=== PATIENT | male | born 1955 | race Caucasian/White ===

== ENCOUNTER 2019-06-28 14:31 | Inpatient (IN) ==
[2019-06-28 16:06] LABS: BILIRUBIN URINE NEGATIVE (NEGATIVE); BLOOD URINE 1+ (NEGATIVE); CLARITY VERY CLOUDY (CLEAR); COLOR YELLOW; GLUCOSE URINE NEGATIVE (NEGATIVE); KETONE URINE TRACE mg/dL (NEGATIVE); LEUKOCYTES URINE 2+ (NEGATIVE); NITRITE URINE POSITIVE (NEGATIVE); PH URINE 6.5; PROTEIN URINE 1+(30 mg/dL) mg/dL (NEGATIVE); SP GRAVITY URINE 1.015; UROBILINOGEN URINE NORMAL
[2019-06-28 16:10] LABS: URINE SOURCE CLEAN CATCH
--- NOTE | 2019-06-28 16:11 | Diag Imaging Result Doc PS360 ---
EXAM: CHEST-PORTABLE HISTORY: syncope TECHNIQUE: Single view COMPARISON: None. FINDINGS: The lungs are well expanded. The heart is not enlarged. The vessels are not distended. There are no infiltrates. No effusion identified. IMPRESSION: Negative exam. Electronically signed by Miguel Llanes 06/28/2019 4:08 PM
[2019-06-28 16:33] LABS: URINE BACTERIA 3+ /HFP; URINE CAST NONE SEEN /LPF; URINE CRYSTAL NONE SEEN /HPF; URINE EPITHELIAL CELLS <10 /HPF (<10); URINE SMALL ROUND CELLS TRANSITIONAL PRESENT; URINE WBC TNTC /HPF (<10); URINE YEAST NONE SEEN /HPF
[2019-06-28 16:40] LABS: AGAP 9; ALBUMIN 4.2 g/dL (3.5-5.0); ALKALINE PHOSPHATASE 162 U/L (32-122); BUN 20 mg/dL (8-22); CALCIUM 9.5 mg/dL (8.8-10.2); CHLORIDE 103 mmol/L (98-107); COSMO 275; CREATININE 0.7 mg/dL (0.7-1.2); ESTIMATED GFR > 60; GLUCOSE 104 mg/dL (70-104); GOT 13 U/L (10-34); GPT 14 U/L (10-44); POTASSIUM 4.5 mmol/L (3.5-5.1); SODIUM 136 mmol/L (136-145); TCO2 24 mmol/L (25-35)
[2019-06-28] MEDS ORDERED: ROCEPHIN 1 GM in NS 50 ML IV ONE (16:45)
--- NOTE | 2019-06-28 16:47 | Diag Imaging Result Doc PS360 ---
EXAM: CT HEAD W/O CONTRAST HISTORY: syncope TECHNIQUE: CT head without contrast COMPARISON: 05/25/2018 FINDINGS: No parenchymal hemorrhage. No epidural or subdural hematoma. No subarachnoid hemorrhage. No mass identified on this noncontrasted exam. No hydrocephalus. No sinus opacification. IMPRESSION: No hemorrhage. Negative brain CT without contrast. This exam was performed using automated exposure control, adjustment of mA or kV according to patient size, and/or use of iterative reconstruction technique. Electronically signed by Miguel Llanes 06/28/2019 4:45 PM
[2019-06-28] MEDS ORDERED: NS 1,000 ML IV ONE (17:06)
[2019-06-28 17:30] LABS: BASO# 0.01 X1000 (0.0-0.2); BASO% 0.1 % (0.0-0.8); EOS# 0.06 X1000 (0.0-0.7); EOS% 0.8 % (0.0-10.0); HEMATOCRIT 40.4 % (42.0-52.0); HEMOGLOBIN 13.1 g/dL (14.0-18.0); IMM GRAN# 0.02 X1000 (0.0-0.04); IMM GRAN% 0.3 % (0.0-0.5); LYMPH# 1.18 X1000 (1.2-3.4); LYMPH% 15.5 % (20.5-51.1); MCH 29.5 PG (27-31); MCHC 32.4 g/dL (33-37); MONO# 0.61 X1000 (0.11-0.59); MPV 10.3 FL (7.4-10.4); NEUT# 5.71 X1000 (1.4-6.5); NEUT% 75.3 % (42.2-75.2); PLT 252 X1000 (130-400); RBC 4.44 XMIL (4.7-6.1); RDW 14.3 % (11.5-14.5); WBC 7.59 X1000 (4.8-10.8)
--- NOTE | 2019-06-28 17:31 | EKG Report ---
Test Performed on : 06/28/2019 3:34:44 PM Test Reason : syncope Blood Pressure : / mmHG Vent. Rate : 087 BPM Atrial Rate : 087 BPM P-R Int : 182 ms QRS Dur : 106 ms QT Int : 374 ms P-R-T Axes : -08 031 033 degrees QTc Int : 450 ms Normal sinus rhythm. Normal ECG When compared with ECG of 17-JUL-2017 14:02, No significant change was found Unconfirmed Result
--- NOTE | 2019-06-28 17:45 | PROVIDER DOCUMENTATION ---
This chart was entered by Javier Lopez Scribe, acting as scribe for Adia Centeno MD. HPI-Syncope/Dizziness - General Chief Complaint: Syncope Stated Complaint: SYNCOPE Time Seen by Provider: 06/28/19 15:04 Source: patient, family, EMS (first response) Allergies/Adverse Reactions: Patient Allergies Allergy/AdvReac Type Severity Reaction Status Date / Time No Known Allergies Allergy Verified 07/17/17 13:42 Home Medications: Home Medication List Medication Instructions Recorded Confirmed Last Taken Type Cholecalciferol (Vitamin D3) 25 mcg PO DAILY 06/28/19 06/28/19 Unknown History [Vitamin D3] Ciprofloxacin HCl [Cipro] 1 tab PO BID 06/28/19 06/28/19 Unknown History Cyanocobalamin/FA/Pyridoxine 1 tab PO DAILY 06/28/19 06/28/19 Unknown History [Foltx] Raw Co Q1 200 mg PO DAILY 06/28/19 06/28/19 Unknown History Thiamine Mononitrate (Vit B1) 1 tab PO DAILY 06/28/19 06/28/19 Unknown History [Vitamin B-1] - History of Present Illness-Syncope/Dizzy Nature of Presenting Problem: 63 yom presents to the ed v/a ems for syncope episode. EMS stated pt having " absent seizure." states " i got him up to go to the bathroom , got pt on the toilet and pt was urinating when pt fell of the toilet." states pt " was jerking pts eyes were rolled back and face was drawn." states episode lasts min to min in half. stated states " Friday pt was fixing breakfast and went to sit on walker fell off walker and broke it, stated no one was at home." pt "is wetting the bed also frequently." pt stated " dizzy/lightheaded, like im in a row boat in water." states " when this happens pts BP drops ,pt said when ems checked it maybe 70/40?" stated going to a [facility] doctor in [facility] and severe apnea , and has complained to doctor about symptoms." states trying to get in with Dr. [place] in [place] have the referral but waiting to be called back to set up a date." onset symptoms "for year in a half but more and more now." pt has problems with clear speech. Prior Episodes: reports: recent history (year and half ago started stated by ) Onset/Duration: reports: just prior to arrival Timing: reports: still present, intermittent Position/Activity at time of episode: reports: sitting (using bathroom) Symptoms prior to episode: reports: lightheaded. denies: nausea/vomiting, chest pain, abdominal pain, back pain, injury Duration of preceding symptoms? (mins): 1 Context: reports: seizure activity observed Loss of Consciousness: brief (seconds) Location of injury. (If syncope resulted in an injury.): reports: none Current Symptoms: reports: lightheaded, dizzy. denies: fever, chills, chest pain, short of breath, abdominal pain, nausea, vomiting, blurred vision Recently Seen Here or By Another Healthcare Provider: No - Dizziness Severity in ED: reports: mild Dizziness Related Current/Associated Symptoms: reports: lightheaded, dizzy, sense of spinning, syncope. denies: nausea/vomiting, headache, blurred vision, sense of falling, unable to sit up Any recent trauma/injury?: reports: none Modifying Factors: improves with: nothing Patient usually:: reports: uses a walker Review of Systems - Adult - REVIEW OF SYSTEMS - ADULT Constitutional: denies: chills, fever Eyes: denies: decreased vision, blurred vision, double vision Ears, Nose, Mouth & Throat: reports: no symptoms reported Cardiovascular: denies: chest pain, heart murmur, palpitations Respiratory: denies: shortness of breath, wheezing Gastrointestinal: denies: abdominal pain, constipation, diarrhea, nausea, vomiting Genitourinary: reports: no symptoms reported Musculoskeletal: denies: back pain, neck pain Integumentary: reports: no symptoms reported Neurological: reports: see HPI, dizziness/vertigo, syncope. denies: headache/migraines, numbness Psychiatric: reports: no symptoms reported Endocrine: reports: no symptoms reported Hematologic/Lymphatic: reports: no symptoms reported Allergic/Immunologic: reports: no symptoms reported All Other Systems: Reviewed and Negative Past History - Adult - PAST MEDICAL HISTORY-ADULT Review of Records: reports: Old Records Reviewed, Nursing Assessment Review, Medications Reviewed, Social history reviewed & non-contributory. Major Childhood Illnesses: reports: denies history Cardiovascular: reports: HTN Respiratory: reports: sleep apnea Gastrointestinal: reports: denies history Obstetrical/Gynecological: reports: denies history Genitourinary: reports: kidney stones Musculoskeletal: reports: other (BLE chronic neuropathy) Neurological: reports: Seizures/Epilepsy (per pt) Endocrine/Immune: reports: denies history Other Conditions: reports: denies history - PRIOR SURGERIES/PROCEDURES Surgical/Procedure History: reports: none - IMMUNIZATION STATUS Childhood Immunizations: See Nurse Assessment Flu Vaccine: See Nurse Assessment - FAMILY HISTORY Family History: reviewed, not pertinent - SOCIAL HISTORY Smoking: quit greater than 1 year, cigarettes Substance Use: alcohol Alcohol Use Frequency: rarely (none since january) Living Situation: family Physical Exam-General - PHYSICAL EXAM-ADULT Initial Vital Signs Reviewed: Yes - CONSTITUTIONAL General Appearance: appears well, alert, no apparent distress. negative: lethargic, slow to respond - EYES Eyes: PERRL/EOMI - HEAD, EARS, NOSE, MOUTH & THROAT HENMT: moist mucous membranes, normal ENT inspection, TMs normal - NECK Neck: non-tender, full range of motion, supple, normal inspection - RESPIRATORY Respiratory: chest non-tender, lungs clear, normal breath sounds, no pleuratic chest pain, no respiratory distress, no accessory muscle use - CARDIOVASCULAR Cardiovascular: normal peripheral pulses, regular rate, rhythm, no edema, no gallop, no JVD, no murmur - GASTROINTESTINAL (ABDOMEN) Abdominal Exam: normal bowel sounds, non tender, soft, no organomegaly, no pulsatile mass. negative: distended, guarding, rigid, rebound, tenderness - GENITOURINARY Male Genitalia: deferred Rectal Exam: deferred Hemoccult Exam: deferred - LYMPHATIC Lymphatic: no adenopathy - MUSCULOSKELETAL Back Exam: normal inspection, no CVA tenderness, no vertebral tenderness Extremity: normal range of motion, non-tender, normal gait - SKIN Integumentary: normal color, normal turgor, warm/dry - NEUROLOGIC Neurologic: grossly normal, no motor/sensory deficits - PSYCHIATRIC Psych/Mental Status: normal mood/affect, normal thought content, normal thought process, oriented x 3 Progress - PLAN OF CARE/RESULTS Progress/Plan/Lab Results: Vital Signs - 8 hr 06/28/19 14:31 06/28/19 15:44 06/28/19 16:50 Temperature 97.9 F Pulse Rate 88 89 Pulse Rate [Sitting] 96 H Pulse Rate [Standing] 99 H Pulse Rate [Supine] 88 Respiratory Rate 18 19 Blood Pressure 168/109 148/80 Blood Pressure [Sitting] 121/87 Blood Pressure [Standing] 77/49 Blood Pressure [Supine] 152/100 O2 Sat by Pulse Oximetry 99 100 Laboratory Results - last 24 hr 06/28/19 06/28/19 06/28/19 14:51 15:40 15:40 WBC RBC Hgb Hct MCV MCH MCHC RDW Std Deviation Plt Count MPV Immature Gran % (Auto) Neut % (Auto) Lymph % (Auto) [place] % (Auto) Eos % (Auto) Baso % (Auto) Immature Gran # (Auto) Neut # (Auto) Lymph # (Auto) [place] # (Auto) Eos # (Auto) Baso # (Auto) Sodium Potassium Chloride Carbon Dioxide Anion Gap BUN Creatinine Estimated GFR/1.73 m2 BUN/Creatinine Ratio Glucose POC Glucose 105 H Calculated Osmolality Calcium Total Bilirubin AST ALT Alkaline Phosphatase Creatine Kinase 41 Troponin T < 0.010 Total Protein Albumin Globulin Albumin/Globulin Ratio TSH Urine Source Urine Color Urine Clarity Urine pH Ur Specific Withams Urine Protein Urine Ketones Urine Blood Urine Nitrite Urine Bilirubin Urine Urobilinogen Urine Microscopic RBC Urine WBC Urine Microscopic WBC Ur Epithelial Cells Urine Crystals Small Round Cells Urine Bacteria Urine Casts Urine Yeast Urine Glucose 06/28/19 06/28/19 06/28/19 15:40 15:40 15:40 WBC 7.59 RBC 4.44 L Hgb 13.1 L Hct 40.4 L MCV 91.0 MCH 29.5 MCHC 32.4 L RDW Std Deviation 14.3 Plt Count 252 MPV 10.3 Immature Gran % (Auto) 0.3 Neut % (Auto) 75.3 H Lymph % (Auto) 15.5 L [place] % (Auto) 8.0 Eos % (Auto) 0.8 Baso % (Auto) 0.1 Immature Gran # (Auto) 0.02 Neut # (Auto) 5.71 Lymph # (Auto) 1.18 L [place] # (Auto) 0.61 H Eos # (Auto) 0.06 Baso # (Auto) 0.01 Sodium 136 Potassium 4.5 Chloride 103 Carbon Dioxide 24 L Anion Gap 9 BUN 20 Creatinine 0.7 Estimated GFR/1.73 m2 > 60 BUN/Creatinine Ratio 29 Glucose 104 POC Glucose Calculated Osmolality 275 Calcium 9.5 Total Bilirubin 0.30 AST 13 ALT 14 Alkaline Phosphatase 162 H Creatine Kinase Troponin T Total Protein 7.0 Albumin 4.2 Globulin 3.0 Albumin/Globulin Ratio 2.0 TSH 2.41 Urine Source Urine Color Urine Clarity Urine pH Ur Specific Withams Urine Protein Urine Ketones Urine Blood Urine Nitrite Urine Bilirubin Urine Urobilinogen Urine Microscopic RBC Urine WBC Urine Microscopic WBC Ur Epithelial Cells Urine Crystals Small Round Cells Urine Bacteria Urine Casts Urine Yeast Urine Glucose 06/28/19 15:40 WBC RBC Hgb Hct MCV MCH MCHC RDW Std Deviation Plt Count MPV Immature Gran % (Auto) Neut % (Auto) Lymph % (Auto) [place] % (Auto) Eos % (Auto) Baso % (Auto) Immature Gran # (Auto) Neut # (Auto) Lymph # (Auto) [place] # (Auto) Eos # (Auto) Baso # (Auto) Sodium Potassium Chloride Carbon Dioxide Anion Gap BUN Creatinine Estimated GFR/1.73 m2 BUN/Creatinine Ratio Glucose POC Glucose Calculated Osmolality Calcium Total Bilirubin AST ALT Alkaline Phosphatase Creatine Kinase Troponin T Total Protein Albumin Globulin Albumin/Globulin Ratio TSH Urine Source CLEAN CATCH Urine Color YELLOW Urine Clarity VERY CLOUDY A Urine pH 6.5 Ur Specific Withams 1.015 Urine Protein 1+(30 mg/dL) A Urine Ketones TRACE Urine Blood 1+ A Urine Nitrite POSITIVE A Urine Bilirubin NEGATIVE Urine Urobilinogen NORMAL Urine Microscopic RBC 10-20 A Urine WBC 2+ A Urine Microscopic WBC TNTC A Ur Epithelial Cells <10 Urine Crystals NONE SEEN Small Round Cells TRANSITIONAL PRESENT Urine Bacteria 3+ Urine Casts NONE SEEN Urine Yeast NONE SEEN Urine Glucose NEGATIVE Orders Category Date Time Status Admit - [facility] Routine AdmDCTranf 06/28/19 17:41 Active Activity - Bed Rest with BRP ORDERED Care 06/28/19 17:41 Active ED: Orthostatic Vital Signs (E DIRECTED Care 06/28/19 15:15 Active Z-Document. for Tele Applied ORDERED Care 06/28/19 17:42 Active Heart Healthy Diet Diet 06/28/19 17:43 Active CHEST-PORTABLE [RAD] Stat Exams 06/28/19 15:[address] HEAD W/O CONTRAST [CT] Stat Exams 06/28/19 15:15 Completed BLOOD CULTURE [BLDCUL] Stat Lab 06/28/19 17:18 Ordered CBC WITH ELECTRONIC DIFF [HEME] Stat Lab 06/28/19 15:40 Completed CK PROFILE [SP CHEM] Stat Lab 06/28/19 15:40 Completed COMPREHENSIVE METABOLIC PANEL [CHEM] Stat Lab 06/28/19 15:40 Completed LACTATE, PLASMA [CHEM] Stat Lab 06/28/19 17:15 Received TROPONIN T Stat Lab 06/28/19 15:40 Completed TSH Stat Lab 06/28/19 15:40 Completed UA NIMS W/REFLEX CULT PL [URINALYSIS] Stat Lab 06/28/19 15:40 Completed URINE CULTURE [RM] Routine Lab 06/28/19 16:33 Ordered 0.9% Sodium Chloride Inj [Ns] 1,000 ml Med 06/28/19 17:06 Active IV 999 mls/hr CefTRIAXONE [Rocephin] 1 gm Med 06/28/19 16:45 Discontinued 0.9% Sodium Chloride Inj [Ns] 50 ml IV NOW Telemetry [OM.EQ] Routine Oth 06/28/19 17:41 Active EKG [EKG] Stat Ther 06/28/19 15:15 Draft Transfer/Admit Order [TRANSFER] Routine Transfer 06/28/19 17:43 Ordered Result Diagrams: 06/28/19 15:40 06/28/19 15:40 - EKG 1 Time of EKG reading by physician:: 15:34 EKG Read and Signed by:: Adia Centeno EKG Interpretation (*Must complete 3 of following elements*): Normal Rate: 84 Rhythm: NSR [place]: normal QRS: normal [place] Interval: normal ST Wave: normal - XRAY 1 XRAY Study: Chest Impression: See EMR Report (EXAM: CHEST-PORTABLE HISTORY: syncope TECHNIQUE: Single view COMPARISON: None. FINDINGS: The lungs are well expanded. The heart is not enlarged. The vessels are not distended. There are no infiltrates. No effusion identified. IMPRESSION: Negative exam. Electronically signed by Miguel Llanes 06/28/2019 4:08 PM 06/28/19 [id number] Interpreting Physician: Miguel Llanes MD Dictated Date/Time: 06/28/19 1608 cc: Adia Centeno MD; None,PCP) - CT/MRI 1 CT Study: Head Impression: See EMR Report (EXAM: CT HEAD W/O CONTRAST HISTORY: syncope TECHNIQUE: CT head without contrast COMPARISON: 05/25/2018 FINDINGS: No parenchymal hemorrhage. No epidural or subdural hematoma. No subarachnoid hemo rrhage. No mass identified on this noncontrasted exam. No hydrocephalus. No sinus opacification. IMPRESSION: No hemorrhage. Negative brain CT without contrast. This exam was performed using automated exposure control, adjustment of mA or kV according to patient size, and/or use of iterative reconstruction technique. Electronically signed by Miguel Llanes 06/28/2019 4:45 PM 06/28/19 1646 Interpreting Physician: Miguel Llanes MD Dictated Date/Time: 06/28/19 7719 cc: Adia Centeno MD; None,PCP) - CONSULTS/PCP/HOSPITALIST Notification #1 *Consult/PCP/Hospitalist*: d/w Dr Robins, Time Discussed: 17:37 Consult Disposition: Admit Departure - Departure Date of Disposition Decision: 06/28/19 Time of Disposition Decision: 17:43 DIAGNOSIS: Orthostatic hypotension, Syncope and collapse, Seizure Disposition: ADMITTED INPATIENT 09 Certified Medical Emergency: Emergent Condition: Stable Referrals and Follow-Ups: None,PCP [Primary Care Provider] - - Critical Care Note This patient required my direct & personal management of CC.: No Attestation - Physician/ TIFFANY Attestation Patient care was provided by Advanced Practice Provider:: No The physician spent face to face time with patient:: Yes Advanced Practice Provider documentation review:: Supervising physician onsite and consulted in the evaluation and care of this patient. The physician did have a face to face encounter with the patient. This chart was documented by the indicated scribe, (Javier Lopez, Darian) and accurately reflects the services I performed and decisions made by me, Adia Centeno MD, as attested by the provider's signature.
[2019-06-28 18:20] LABS: INR 1.06; PROTIME 14.4 Seconds (11.0-16.0)
[2019-06-28 18:21] LABS: PTT 30.6 Seconds (22.3-41.8)
[2019-06-28] MEDS: NS 1,000 ML IV SCH (22:58)
[2019-06-28] MEDS ORDERED: FLU VACCINE IM ONE (23:04)
[2019-06-29 06:32] LABS: BASO# 0.02 X1000 (0.0-0.2); BASO% 0.3 % (0.0-0.8); EOS# 0.11 X1000 (0.0-0.7); EOS% 1.6 % (0.0-10.0); HEMATOCRIT 37.3 % (42.0-52.0); HEMOGLOBIN 11.8 g/dL (14.0-18.0); IMM GRAN# 0.02 X1000 (0.0-0.04); IMM GRAN% 0.3 % (0.0-0.5); LYMPH# 1.56 X1000 (1.2-3.4); LYMPH% 22.5 % (20.5-51.1); MCH 28.6 PG (27-31); MCHC 31.6 g/dL (33-37); MCV 90.5 FL (81-99); MONO# 0.62 X1000 (0.11-0.59); MONO% 8.9 % (1.7-9.3); MPV 10.2 FL (7.4-10.4); NEUT% 66.4 % (42.2-75.2); PLT 232 X1000 (130-400); RBC 4.12 XMIL (4.7-6.1); WBC 6.93 X1000 (4.8-10.8)
[2019-06-29] MEDS: NS 1,000 ML IV SCH ×2 (06:41→15:12)
[2019-06-29 06:46] LABS: AGAP 10; ALBUMIN 3.5 g/dL (3.5-5.0); ALKALINE PHOSPHATASE 131 U/L (32-122); BUN 14 mg/dL (8-22); CALCIUM 8.7 mg/dL (8.8-10.2); CHLORIDE 109 mmol/L (98-107); COSMO 276; CREATININE 0.7 mg/dL (0.7-1.2); ESTIMATED GFR > 60; GLUCOSE 96 mg/dL (70-104); GOT 14 U/L (10-34); GPT 14 U/L (10-44); MAGNESIUM 1.7 mg/dL (1.5-2.7); PHOSPHORUS 3.4 mg/dL (2.7-4.5); POTASSIUM 3.9 mmol/L (3.5-5.1); SODIUM 138 mmol/L (136-145); TCO2 20 mmol/L (25-35); TOTAL PROTEIN 6.4 g/dL (6.3-8.3)
--- NOTE | 2019-06-29 11:22 | Vascular Study Report ---
EXAM: Carotid Ultrasound - 06/29/2019 HISTORY: syncope TECHNIQUE: Carotid flow studies COMPARISON: None. FINDINGS: There is mild atherosclerotic plaquing at the right carotid bulb/internal carotid origin. Maximum systolic velocity at the right internal carotid is 71 cm/s, and maximum diastolic velocity is 25 cm/s. The right internal to common carotid systolic velocity ratio is 1.16. The flow velocities and ratio are consistent with 0-39% stenosis at the right internal carotid. The right vertebral demonstrates antegrade flow. There is possibly mild smooth atherosclerotic plaquing at the left carotid bulb/internal carotid origin. Maximal systolic velocity at the left internal carotid is 65 cm/s, and maximum diastolic velocity is 16 cm/s. The left internal to common carotid systolic velocity ratio is 0.74. The flow velocities and ratio are consistent with 0-39% stenosis at the left internal carotid. The left vertebral demonstrates antegrade flow. IMPRESSION: 0-39% stenosis at right internal carotid. 0-39% stenosis at left internal carotid. Electronically signed by Natanael Becker 06/29/2019 11:20 AM
--- NOTE | 2019-06-29 12:33 | HISTORY AND PHYSICAL ---
PRIMARY CARE PROVIDER: Dr. Christopher Amaro. NEUROLOGIST: Dr. Grady. HISTORY OF PRESENT ILLNESS: Mr. Solorzano is a 63-year-old gentleman who carries a past medical history of disequilibrium, dysarthria, peripheral neuropathy, anemia, anxiety, chronic neck pain, erectile dysfunction, gout, hypertension, rheumatoid arthritis, sleep apnea, who wears CPAP at night. Reported he keeps having falls at home. Per his report, his thought maybe he was having seizures secondary to their youngest son having a history of seizures. He reports disequilibrium and slurred speech and dysarthria has been ongoing and continues to worsen for the past 2-1/2 years. Per ED report, the got him up to go the restroom, and while he was urinating, he fell off the toilet and was jerking, and his eyes were rolled back and his face appeared to be drawn. EMS reported hypotension 70/40s. I believe he follows a Neurology doctor now in [place], and they are currently writing a referral to Dr. Luis in [place]. Workup in the ED with a head CT showed no hemorrhage, negative brain exam. Carotid Doppler showed 0% to 39% stenosis on the right and left internal carotid. Currently pending echocardiogram. He was also found to have a urinary tract infection and was orthostatic. Will continue treatment with further evaluation. REVIEW OF SYSTEMS: A 12-point review of systems was complete and negative, except for those mentioned in the HPI. PAST MEDICAL HISTORY: 1. Disequilibrium. 2. Dysarthria. 3. Peripheral neuropathy. 4. Anemia. 5. Anxiety. 6. Chronic neck pain. 7. History of falling. 8. Sleep apnea with CPAP machine at night. 9. Depression. 10. Erectile dysfunction. 11. Gout. 12. Hypertension. 13. Rheumatoid arthritis. SOCIAL HISTORY: He is . He does have grown children. 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 Before that, he was in the [employer]. No alcohol, tobacco, or illicit drug use. FAMILY HISTORY: Unknown. HOME MEDICATIONS: Folic acid and B12. PAST SURGICAL HISTORY: Bladder surgery. PHYSICAL EXAMINATION: VITAL SIGNS: Temperature is 97.2 degrees, heart rate 88, respirations 22, blood pressure 173/92, O2 is 100% on room air. GENERAL: Mr. Solorzano is a 63-year-old male who appears older than his stated age, lying in the bed in no acute distress. HEENT: Atraumatic, normocephalic. PERRL. NECK: Supple. Trachea midline. CARDIOVASCULAR: S1, S2 appreciated. No murmurs, gallops, rubs noted. RESPIRATORY: Lung sounds are clear bilaterally. GASTROINTESTINAL: Soft, nontender, nondistended. Positive bowel sounds x4 quadrants. LOWER EXTREMITIES: No signs of clubbing or cyanosis. NEUROLOGIC: The patient is awake, alert, oriented. Follows commands. Moves all extremities. He does have dysarthria, which has been ongoing for him. No other deficits noted. Did not assess his gait. LABORATORY DATA: White count 7, hemoglobin and hematocrit 13 and 40, platelet count is 252,000. Sodium 136, potassium 4.5, BUN 20, creatinine 0.7, blood glucose is 104. Urinalysis showed 3+ bacteria, too numerous to count WBCs, positive for nitrates. ASSESSMENT AND PLAN: 1. Orthostatic hypotension versus seizure. The patient has known disequilibrium as well as dysarthria. Workup with a head CT did not show anything acute. He has been followed by Dr. Grady, as well as neurologist in [place], and waiting for set up with Dr. Luis in [place]. These symptoms have been ongoing for 2-1/2 years and continue to worsen. He has had no more seizure-like activity since admission. Will continue to monitor orthostatics, and continue with intravenous fluids. 2. Urinary tract infection. This could have exacerbated some of his symptoms. We will continue intravenous antibiotics, and await urine culture. 3. Known disequilibrium. He has followed several neurologists. 4. Dysarthria, ongoing for 2-1/2 years. 5. Peripheral neuropathy. 6. Anemia. 7. Anxiety. 8. Chronic knee pain. 9. Reported multiple falls at home. 10. Sleep apnea, on continuous positive airway pressure at night. Further recommendation to follow physician evaluation, laboratory and diagnostic data. Dictated by GREY Nieves for Christopher Amaro MD cc: Christopher Amaro MD
[2019-06-29] MEDS: ROCEPHIN 1 GM in NS 50 ML IV SCH (17:34)
--- NOTE | 2019-06-29 18:08 | ECHO REPORT ---
ORDER DATE: 06/29/2019 MEASUREMENTS: 1. Septal thickness 1.1. 2. Left ventricular internal diameter in diastole 5.1. 3. Posterior wall thickness 1.1. 4. Left ventricular internal diameter in systole 3.3. 5. Aortic root 4.00. 6. Left atrium 3.2. SUMMARY: 1. Adequate quality study. 2. Aortic valve is trileaflet and opens normally on 2-dimensional images. Peak gradient across the aortic valve is less than 10 mmHg. There is trace aortic regurgitation. Mitral, tricuspid, and pulmonic valves are without evidence of structural abnormality. The aortic root is mildly enlarged. 3. Normal left ventricular dimensions demonstrated. Estimated left ventricular ejection fraction appears to be at least 65%. No regional wall motion abnormalities are evident. Left atrium, right atrium, and right ventricle are normal in size with grossly preserved right ventricular systolic function. 4. No pericardial effusion. 5. Appearance of inferior vena cava suggests normal central venous pressure. CONCLUSIONS: 1. No significant valvular abnormality demonstrated. 2. Mild aortic root enlargement. 3. Normal left ventricular systolic function without regional wall motion abnormality evident. cc: Shahid Ribeiro MD
--- NOTE | 2019-06-29 20:08 | HISTORY AND PHYSICAL ---
ADDENDUM: The patient presented to the hospital noting that he had some syncopal episodes. He felt odd. His blood pressures are noted to go from 170s down to 80s and 90s systolic back to 120s and 130s. We are going to admit him to the hospital. We will follow his blood pressures. Patient does appear to have a dysautonomic response. Unclear if he has Parkinson's. He is currently seeing Neurology. cc: Christopher Amaro MD
[2019-06-30] MEDS: NS 1,000 ML IV SCH ×4 (03:10→20:54)
[2019-06-30] MEDS: FOLIC ACID PO SCH (09:21)
[2019-06-30] MEDS: VITAMIN B-12 PO SCH (09:21)
--- NOTE | 2019-06-30 13:07 | DISCHARGE SUMMARY ---
ADMISSION DATE: 06/28/2019 DISCHARGE DATE: 06/30/2019 CONSULTATIONS: None. PERTINENT PROCEDURES: 1. Head CT, no hemorrhage. Negative brain CT without contrast. 2. Carotid Doppler 0-39% stenosis on the right internal carotid and left internal carotid. 3. Echocardiogram: Shows an EF of 65% with no regional wall motion abnormalities. DISCHARGE DIAGNOSES: 1. Orthostatic hypertension versus seizure. The patient has known disequilibrium as well as dysarthria. A workup with a head CT did not show anything acute. He has been followed by Dr. Grady in [place], as well as a neurologist in [place] and is currently switching neurologist over to Dr. Luis in [place]. His symptoms have been ongoing for the past 2- 1/2 years and continued to worsen. He has had no more seizure-like activity since admission. His orthostatics were monitored. He was continued on IV fluids. 2. Urinary tract infections, believed exacerbated some of his symptoms. He was initiated on IV antibiotics. Urine culture grew out mixed cisco. He will not be discharged on any home antibiotics. 3. Known disequilibrium. The patient has been followed by several neurologists. We recommend he continue to stick with a neurologist with his regular followups. 4. Dysarthria again ongoing for 2-1/2 years. 5. Peripheral neuropathy. 6. Anemia. 7. Anxiety. 8. Chronic knee pain. 9. Reported multiple falls at home. 10. Sleep apnea on CPAP at night. HOSPITAL COURSE: Briefly, Mr. Solorzano is a 63-year-old gentleman who carries a past medical history of disequilibrium, dysarthria, peripheral neuropathy, anemia, anxiety, chronic pain, erectile dysfunction, gout, hypertension, rheumatoid arthritis, sleep apnea, who wears CPAP at night. He reported having multiple falls at home per his report, his thought he may be having seizures secondary to the youngest son having a history of seizures. He reports disequilibrium and dysarthria ongoing but has continued to worsen over the past 2-1/2 years. Per ED report, the had gotten him up to go the restroom. While he was urinating, he fell off the toilet and was jerking with his eyes rolling back in his head and his face appeared to be drawn. EMS reported hypotension [address] in the ED did not show any acute changes. Carotid Dopplers did not show any stenosis. His echocardiogram is normal. He was initially found to have a probable urinary tract infection for which he was started on antibiotics. It grew out mixed cisco. He has not had any seizures since admission. We have encouraged him to continue to follow up with his neurologist and to stick with one neurologist. VITAL SIGNS: At time of discharge, temperature is 98.6 degrees, heart rate 97, respirations 16, blood pressure 161/93, O2 is 100% on room air. DISCHARGE DIET: Healthy heart. DISCHARGE MEDICATIONS: 1. Folic acid 1 mg p.o. daily. 2. Vitamin B12 25,000 mcg p.o. daily. FOLLOWUP: Mr. Solorzano is being discharged back home with family. He is to continue to follow up with his neurologist. He can return to the ED or call 911 for any worsening of symptoms. Dictated by GREY Nieves for Christopher Amaro MD cc: Christopher Amaro MD
[2019-06-30] MEDS: ROCEPHIN 1 GM in NS 50 ML IV SCH (17:42)
--- NOTE | 2019-06-30 22:49 | PROGRESS NOTE ---
DATE: 06/30/2019 SUBJECTIVE: The patient himself notes that he is feeling back to his baseline. He is ready to go home. Denies any chest pain or palpitations. PHYSICAL EXAM: VITAL SIGNS: Temperature 97.6, pulse 97, respiratory rate 18, BP 161/93. General: Patient is awake, alert. He is in no current respiratory distress. HEENT: Normocephalic. Neck: Supple. Cardiovascular: Regular rate. Chest: Clear. Abdomen: Soft. Extremities: He is noted to move all extremities. Neurologic: He does have dysarthric speech, but this appears to be his baseline. Skin: Warm, dry, no rash. ASSESSMENT: 1. Orthostatic hypotension. 2. Urinary tract infection, presumably. 3. Disequilibrium. 4. Dysarthric speech. 5. Peripheral neuropathy. 6. Anemia. 7. Anxiety. 8. Chronic knee pain. PLAN: We had actually planned on discharging Mr. Solorzano home because I do feel as though he is back to his baseline, although, he is very weak. His blood pressures have been stable. However, his came to the office initially to ask that he be transferred to [facility], although, she is no accepting doctor in mind. She notes that he has been seeing Neurology in [place]. He certainly may need physical rehab if he is unable to get stronger. His notes that he is too weak for her to handle at home. We are going to attempt to get physical therapy. If this improves, hopefully can discharge home and he can follow up outpatient with Neurology as well as B. cc: Christopher Amaro MD
[2019-07-01] MEDS: FOLIC ACID PO SCH (10:00)
[2019-07-01] MEDS: VITAMIN B-12 PO SCH (10:00)
--- NOTE | 2019-07-01 19:30 | HISTORY AND PHYSICAL ---
SUBJECTIVE: Patient notes he is still too tired and fatigued to get out of bed on his own. Still requiring assistance. Denies any chest pain or palpitations. PHYSICAL EXAMINATION: VITAL SIGNS: Temperature 97.7, pulse 88, respiratory rate 18, blood pressure 173/92. GENERAL: Patient is pleasant to talk with. He is in no respiratory distress. HEENT: Normocephalic. NECK: Supple. CARDIOVASCULAR: Regular rate. No murmurs. CHEST: Clear. ABDOMEN: Soft. EXTREMITIES: Moves all extremities although generalized weakness. ASSESSMENT: 1. Generalized weakness with adult failure to thrive. 2. Hypertension with frequent episodes of hypertension. 3. Orthostatic hypotension appears to have resolved. 4. Volume depletion resolved. 5. Urinary tract infection. 6. Peripheral neuropathy. 7. Others. PLAN: Given patient's frequent falling at home and generalized weakness and the fact that he is unable to care for himself at home, we will consult long term care social worker to assist with hopefully transfer her to rehab. cc: Christopher Amaro MD
[2019-07-02] MEDS ORDERED: APRESOLINE PO PRN (08:49)
[2019-07-02] MEDS: FOLIC ACID PO SCH (10:22)
[2019-07-02] MEDS: VITAMIN B-12 PO SCH (10:22)
[2019-07-02 11:42] VITALS: BP 87/50
--- NOTE | 2019-07-02 13:31 | DISCHARGE SUMMARY ---
ADMISSION DATE: 06/28/2019 DISCHARGE DATE: 07/02/2019 DISCHARGE DIAGNOSES: 1. Orthostatic hypotension, resolved. 2. Labile hypertension. Blood pressure has been noted while he is in the bed to go from 90 systolic to 180 systolic. This is likely what caused his syncopal episode. 3. Syncope. 4. Adult failure to thrive with generalized weakness. 5. Dysarthric speech. 6. Disequilibrium. 7. History of rheumatoid arthritis. 8. Chronic neck pain. 9. Chronic anxiety. 10. Sleep apnea. CONSULTATIONS: None. PROCEDURES: None. BRIEF HOSPITAL COURSE: The patient is a 63-year-old very pleasant male who unfortunately has dysarthric speech that is chronic and admitted to the hospital after a syncopal episode at home. This was most likely secondary to his blood pressure dropping in the 80s and 90s systolic. Thankfully, he has had effectively no further complications while he has been in the hospital although he also has not been ambulatory due to his generalized weakness. His hospital course has only been prolonged secondary to his generalized weakness. His blood pressures have been sporadic from 100 systolic up to 190. We have been using hydralazine as needed. DISPOSITION: Patient will be discharged to rehab. He will continue with physical therapy while in rehab. We will continue to use hydralazine p.r.n., blood pressure greater than 180s systolic. He will need to follow up outpatient with Neurology, and possibly with [facility] to evaluate dysautonomia. TIME SPENT: Greater than 30 minutes was spent in discharge planning. cc: Christopher Amaro MD
== END 2019-07-02 14:00 | DRG 312 ==
LOC: P.ED 14:31 → SUATTDRO 19:34 → P.MEDSURG 19:34
PROVIDERS: ATTEND Family Medicine

== ENCOUNTER 2019-08-29 20:02 | Inpatient (IN) ==
--- NOTE | 2019-08-29 20:38 | PROVIDER DOCUMENTATION ---
HPI-Syncope/Dizziness - General Chief Complaint: Syncope Stated Complaint: vasovagal episode Time Seen by Provider: 08/29/19 20:18 Source: patient, EMS Allergies/Adverse Reactions: Patient Allergies Allergy/AdvReac Type Severity Reaction Status Date / Time No Known Allergies Allergy Verified 08/29/19 20:17 Home Medications: Home Medication List Medication Instructions Recorded Confirmed Last Taken Type Cyanocobalamin (Vitamin B-12) 2,500 mcg PO DAILY 08/16/19 08/29/19 08/15/19 07:00 History [Vitamin B12] Folic Acid 1 mg PO DAILY 08/16/19 08/29/19 08/15/19 07:00 History - History of Present Illness-Syncope/Dizzy Nature of Presenting Problem: Patient is a 63yo M who presents, via EMS, after a vasovagal syncope episode which occurred just RISK ANALYST. Patient reports he was having a BM and was straining prior to syncopal episode. EMS reports patient was slumped over on toilet when they arrived. Deny any injury from event. Patient reports a history of these episodes, and reports he was recently admitted to rehab for these episodes. Reports hx of chronic dizziness, however reports dizziness today is no different than normal. Patient reports he is in no distress right now. Denies CP, palpitations, SOB, n/v, or fever. Upon examination, Stone catheter noted - patient reports he had a cystoscopy 1 week ago. 2109: Patient's arrived at bedside. She reports patient had numerous syncopal episodes tonight. Reports the first episode occurred while he was eating dinner, and the subsequent episodes occurred while on the toilet. States patient normally does not have "this many episodes at the same time." If witnessed syncope, by whom?: Patient's Prior Episodes: reports: multiple episodes today, recent history Onset/Duration: reports: just prior to arrival Timing: reports: resolved prior to arrival Position/Activity at time of episode: reports: activity (defecating/eating) Symptoms prior to episode: reports: none Context: reports: lost consciousness Loss of Consciousness: brief (seconds) Location of injury. (If syncope resulted in an injury.): reports: none Current Symptoms: reports: none/feels normal Similar symptoms previously: reports: previous diagnosis Recently Seen Here or By Another Healthcare Provider: Yes (released from rehab 1 week ago) Review of Systems - Adult - REVIEW OF SYSTEMS - ADULT Constitutional: reports: no symptoms reported. denies: chills, fever Eyes: reports: no symptoms reported. denies: decreased vision, blurred vision Ears, Nose, Mouth & Throat: reports: no symptoms reported Cardiovascular: reports: no symptoms reported. denies: chest pain, palpitations Respiratory: reports: no symptoms reported. denies: cough, shortness of breath Gastrointestinal: reports: no symptoms reported. denies: diarrhea, vomiting Genitourinary: reports: no symptoms reported Musculoskeletal: reports: no symptoms reported Integumentary: reports: no symptoms reported Neurological: reports: see HPI, slurred speech (chronic), syncope Psychiatric: reports: no symptoms reported Endocrine: reports: no symptoms reported Past History - Adult - PAST MEDICAL HISTORY-ADULT Review of Records: reports: Old Records Reviewed, Nursing Assessment Review, Medications Reviewed Major Childhood Illnesses: reports: denies history Cardiovascular: reports: HTN Respiratory: reports: sleep apnea Gastrointestinal: reports: denies history Genitourinary: reports: kidney stones Musculoskeletal: reports: other (BLE chronic neuropathy) Neurological: reports: Seizures/Epilepsy (per pt) Endocrine/Immune: reports: denies history Other Conditions: reports: denies history - PRIOR SURGERIES/PROCEDURES Surgical/Procedure History: reports: none - IMMUNIZATION STATUS Childhood Immunizations: See Nurse Assessment Flu Vaccine: See Nurse Assessment - FAMILY HISTORY Family History: reviewed, not pertinent Physical Exam-General - PHYSICAL EXAM-ADULT Initial Vital Signs Reviewed: Yes - CONSTITUTIONAL General Appearance: appears well, alert, no apparent distress. negative: lethargic, slow to respond, obtunded - EYES Eyes: PERRL/EOMI, pink conjunctivae. negative: EOM palsy, scleral icterus - HEAD, EARS, NOSE, MOUTH & THROAT HENMT: normocephalic/atraumatic, moist mucous membranes. negative: angioedema - NECK Neck: full range of motion, supple, normal inspection - RESPIRATORY Respiratory: chest non-tender, lungs clear, normal breath sounds, no pleuratic chest pain, no respiratory distress, no accessory muscle use. negative: crackles, rales, rhonchi, stridor, wheezing - CARDIOVASCULAR Cardiovascular: regular rate, rhythm - LYMPHATIC Lymphatic: no adenopathy - MUSCULOSKELETAL Back Exam: normal inspection Extremity: normal range of motion - SKIN Integumentary: normal color, warm/dry. negative: cyanosis, jaundice, mottled, pallor - NEUROLOGIC Neurologic: grossly normal - PSYCHIATRIC Psych/Mental Status: normal mood/affect, normal thought content, normal thought process, oriented x 3 Progress - PLAN OF CARE/RESULTS Progress/Plan/Lab Results: Vital Signs - 8 hr 08/29/19 20:08 08/29/19 20:19 Temperature 98 F Pulse Rate 86 Pulse Rate [Sitting] 82 Pulse Rate [Supine] 84 Respiratory Rate 18 Blood Pressure 175/114 Blood Pressure [Sitting] 166/97 Blood Pressure [Supine] 162/103 O2 Sat by Pulse Oximetry 99 Laboratory Results - last 24 hr 08/29/19 08/29/19 08/29/19 20:33 20:33 20:33 WBC 7.97 RBC 4.70 Hgb 13.6 L Hct 42.1 MCV 89.6 MCH 28.9 MCHC 32.3 L RDW Std Deviation 14.0 Plt Count 232 MPV 10.2 Immature Gran % (Auto) 0.4 Neut % (Auto) 74.5 Lymph % (Auto) 13.6 L [place] % (Auto) 10.2 H Eos % (Auto) 1.0 Baso % (Auto) 0.3 Immature Gran # (Auto) 0.03 Neut # (Auto) 5.95 Lymph # (Auto) 1.08 L [place] # (Auto) 0.81 H Eos # (Auto) 0.08 Baso # (Auto) 0.02 Sodium 138 Potassium 4.2 Chloride 102 Carbon Dioxide 23 L Anion Gap 13 BUN 18 Creatinine 0.9 Estimated GFR/1.73 m2 > 60 BUN/Creatinine Ratio 20 Glucose 100 Calculated Osmolality 278 Calcium 9.8 Total Bilirubin 0.40 AST 17 ALT 13 Alkaline Phosphatase 196 H Troponin T < 0.010 Total Protein 7.6 Albumin 4.3 Globulin 3.0 Albumin/Globulin Ratio 1.0 Urine Source Urine Color Urine Turbidity Urine pH Ur Specific [place] Urine Protein Ur Glucose (Stick) Ur Ketones (Stick) Urine Blood Urine Nitrite Urine Bilirubin Urobilinogen Dipstick Urine Leukocytes Urine WBC (Auto) Urine RBC (Auto) U Epithel Cells (Auto) Urine Bacteria (Auto) 08/29/19 20:39 WBC RBC Hgb Hct MCV MCH MCHC RDW Std Deviation Plt Count MPV Immature Gran % (Auto) Neut % (Auto) Lymph % (Auto) [place] % (Auto) Eos % (Auto) Baso % (Auto) Immature Gran # (Auto) Neut # (Auto) Lymph # (Auto) [place] # (Auto) Eos # (Auto) Baso # (Auto) Sodium Potassium Chloride Carbon Dioxide Anion Gap BUN Creatinine Estimated GFR/1.73 m2 BUN/Creatinine Ratio Glucose Calculated Osmolality Calcium Total Bilirubin AST ALT Alkaline Phosphatase Troponin T Total Protein Albumin Globulin Albumin/Globulin Ratio Urine Source CATH Urine Color STRAW Urine Turbidity HAZY Urine pH 7.0 Ur Specific [place] 1.003 Urine Protein NEGATIVE Ur Glucose (Stick) NEGATIVE Ur Ketones (Stick) NEGATIVE Urine Blood TRACE A Urine Nitrite POSITIVE A Urine Bilirubin NEGATIVE Urobilinogen Dipstick NORMAL Urine Leukocytes LARGE A Urine WBC (Auto) TNTC A Urine RBC (Auto) <10 U Epithel Cells (Auto) <10 Urine Bacteria (Auto) 1+ Orders Category Date Time Status Admit - [facility] Routine AdmDCTranf 08/29/19 23:11 Active ED: Orthostatic Vital Signs (E DIRECTED Care 08/29/19 20:19 Active CHEST-2 VIEWS [RAD] Stat Exams 08/29/19 21:[address] HEAD W/O CONTRAST [CT] Stat Exams 08/29/19 21:48 Taken BLOOD CULTURE [BLDCUL] Stat Lab 08/29/19 20:33 Ordered CBC WITH ELECTRONIC DIFF [HEME] Stat Lab 08/29/19 20:33 Completed COMPREHENSIVE METABOLIC PANEL [CHEM] Stat Lab 08/29/19 20:33 Completed TROPONIN T Stat Lab 08/29/19 20:33 Completed URINALYSIS W/POSS RFLX CULT [URINALYSIS] Stat Lab 08/29/19 20:39 Completed URINE CULTURE [RM] Routine Lab 08/29/19 20:39 Received CefTRIAXONE [Rocephin] 1 gm Med 08/29/19 21:17 Discontinued 0.9% Sodium Chloride Inj [Ns] 50 ml IV NOW EKG [EKG] Stat Ther 08/29/19 20:19 Ordered Transfer/Admit Order [TRANSFER] Routine Transfer 08/29/19 23:11 Ordered Lab results, imaging results, and need for admission discussed with patient and who agree with and verbalize understanding. Result Diagrams: 08/29/19 20:33 08/29/19 20:33 - EKG 1 Time of EKG reading by physician:: 21:07 EKG Read and Signed by:: Heath Lynch EKG Interpretation (*Must complete 3 of following elements*): Normal Rate: 82 Rhythm: NSR [place]: normal QRS: normal [place] Interval: normal ST Wave: normal - XRAY 1 XRAY: Bilateral XRAY Study: Chest Impression: Abnormal ("Left basilar infiltrate" per Dr. Lynch) - CT/MRI 1 CT Study: Head Impression: See EMR Report ("1. No acute intracranial disease." per [facility]) - CONSULTS/PCP/HOSPITALIST Notification #1 *Consult/PCP/Hospitalist*: Dr. Amaro, Hospitalist Time Discussed: 23:05 Reason/Comments: Syncope; UTI; PNA Consult Disposition: Admit Departure - Departure Date of Disposition Decision: 08/29/19 Time of Disposition Decision: 23:05 DIAGNOSIS: Syncope and collapse UTI (urinary tract infection) due to urinary indwelling catheter Qualifiers: Indwelling urinary catheter type: indwelling urethral catheter Encounter type: initial encounter Qualified Code(s): T83.511A - Infection and inflammatory reaction due to indwelling urethral catheter, initial encounter Pneumonia Qualifiers: Pneumonia type: due to unspecified organism Laterality: left Lung location: lower lobe of lung Qualified Code(s): J18.1 - Lobar pneumonia, unspecified organism Disposition: ADMITTED INPATIENT 09 Certified Medical Emergency: Emergent Condition: Stable Referrals and Follow-Ups: None,PCP [Primary Care Provider] - - Critical Care Note This patient required my direct & personal management of CC.: No Attestation - Physician/ TIFFANY Attestation Patient care was provided by Advanced Practice Provider:: Yes Advanced Practice Provider:: Lisa Michael Advanced Practice Provider documentation review:: The Mid-level provider documentation, treatment plan and medical decision making was reviewed by the physician who agrees with all treatment and medical decision making by the P. The physician spent face to face time with patient:: No Advanced Practice Provider documentation review:: Supervising physician onsite and consulted in the evaluation and care of this patient. The physician did not have a face to face encounter with the patient.
[2019-08-29 20:50] LABS: URINE SOURCE CATH
[2019-08-29 20:54] LABS: BASO# 0.02 X1000 (0.0-0.2); BASO% 0.3 % (0.0-0.8); EOS# 0.08 X1000 (0.0-0.7); HEMATOCRIT 42.1 % (42.0-52.0); HEMOGLOBIN 13.6 g/dL (14.0-18.0); IMM GRAN# 0.03 X1000 (0.0-0.04); IMM GRAN% 0.4 % (0.0-0.5); LYMPH# 1.08 X1000 (1.2-3.4); LYMPH% 13.6 % (20.5-51.1); MCH 28.9 PG (27-31); MCHC 32.3 g/dL (33-37); MCV 89.6 FL (81-99); MONO# 0.81 X1000 (0.11-0.59); MONO% 10.2 % (1.7-9.3); MPV 10.2 FL (7.4-10.4); NEUT# 5.95 X1000 (1.4-6.5); NEUT% 74.5 % (42.2-75.2); PLT 232 X1000 (130-400); WBC 7.97 X1000 (4.8-10.8)
[2019-08-29 21:01] LABS: BILIRUBIN URINE NEGATIVE (NEGATIVE); BLOOD URINE TRACE (NEGATIVE); COLOR STRAW; GLUCOSE URINE NEGATIVE (NEGATIVE); KETONE URINE NEGATIVE (NEGATIVE); LEUKOCYTES URINE LARGE (NEGATIVE); NITRITE URINE POSITIVE (NEGATIVE); PROTEIN URINE NEGATIVE (NEGATIVE); SP GRAVITY URINE 1.003; TURBIDITY URINE HAZY (CLEAR); UROBILINOGEN URINE NORMAL (NORMAL)
[2019-08-29 21:02] LABS: UR EPITHELIAL CELLS <10 /HPF (<10); URINE BACTERIA 1+ /HPF; URINE RBC <10 /HPF (<10); URINE WBC TNTC /HPF (<10)
[2019-08-29 21:08] LABS: AGAP 13; ALBUMIN 4.3 g/dL (3.5-5.0); ALKALINE PHOSPHATASE 196 U/L (32-122); BUN 18 mg/dL (8-22); CALCIUM 9.8 mg/dL (8.8-10.2); CHLORIDE 102 mmol/L (98-107); COSMO 278; CREATININE 0.9 mg/dL (0.7-1.2); ESTIMATED GFR > 60; GLUCOSE 100 mg/dL (70-104); GOT 17 U/L (10-34); GPT 13 U/L (10-44); POTASSIUM 4.2 mmol/L (3.5-5.1); SODIUM 138 mmol/L (136-145); TCO2 23 mmol/L (25-35); TOTAL PROTEIN 7.6 g/dL (6.3-8.3)
[2019-08-29] MEDS ORDERED: ROCEPHIN 1 GM in NS 50 ML IV ONE (21:17)
--- NOTE | 2019-08-29 23:52 | EKG Report ---
Test Performed on : 08/29/2019 9:06:42 PM Test Reason : Syncope Blood Pressure : / mmHG Vent. Rate : 082 BPM Atrial Rate : 082 BPM P-R Int : 186 ms QRS Dur : 104 ms QT Int : 362 ms P-R-T Axes : 009 037 042 degrees QTc Int : 422 ms Normal sinus rhythm. Normal ECG When compared with ECG of 28-JUN-2019 15:34, (Unconfirmed) No significant change was found Unconfirmed Result
--- NOTE | 2019-08-30 08:54 | Diag Imaging Result Doc PS360 ---
EXAM: CT HEAD W/O CONTRAST HISTORY: Syncopal episodes TECHNIQUE: Images were obtained from the skull base to vertex without IV contrast as per standard protocol. This exam was performed using automated exposure control, adjustment of mA or kV according to patient size, and/or use of iterative reconstruction technique. COMPARISON: None. Extra-axial spaces: Normal. No hematoma is appreciated. Ventricular system /subarachnoid spaces/cisterns: Unremarkable. No hydrocephalus. No hemorrhage is appreciated. Cerebral parenchyma: Mild atrophy. No hemorrhage is appreciated. Midline shift: None. Cerebellum/Brain stem: Moderate cerebellar atrophy. Calvarium: No fracture is identified. Paranasal sinuses and mastoid air cells: No significant opacification. Visualized orbits: Normal. Preliminary interpretation was given by [facility]. IMPRESSION: Mild cerebral and moderate cerebellar atrophy. No acute intracranial abnormality is appreciated. Electronically signed by Anahi Landeros 08/30/2019 8:52 AM
--- NOTE | 2019-08-30 08:56 | Diag Imaging Result Doc PS360 ---
EXAM: CHEST-2 VIEWS HISTORY: Syncope TECHNIQUE: PA and Lateral chest x-ray COMPARISON: 06/28/2019 FINDINGS: There is cardiomegaly. There is pulmonary emphysema and evidence of prior granulomatous disease. The pulmonary vasculature is not congested. No infiltrate, effusion, or pneumothorax is appreciated. IMPRESSION: Pulmonary emphysema and cardiomegaly. No acute cardiopulmonary abnormality is identified. Electronically signed by Anahi Landeros 08/30/2019 8:53 AM
[2019-08-30] MEDS ORDERED: FLU VACCINE IM ONE (09:00)
[2019-08-30] MEDS: FOLIC ACID PO SCH (09:01)
[2019-08-30] MEDS: ZITHROMAX 500 MG/NS 500 MG/250 ML IVPB IV SCH (09:02)
[2019-08-30] MEDS: VITAMIN B-12 PO SCH (09:02)
--- NOTE | 2019-08-30 09:32 | HISTORY AND PHYSICAL ---
PRIMARY CARE PHYSICIAN: Dr. Christopher Amaro. CHIEF COMPLAINT: Vasovagal syncopal episode after straining to have a bowel movement. HISTORY OF PRESENT ILLNESS: This is a 63-year-old male who presents to [facility] ER via EMS after he had a vasovagal syncopal episode. The patient reported that he was having a bowel movement and was straining. EMS reported that the patient was slumped over on the toilet when they arrived. He has a history of these episodes. The patient's stated that he had had numerous syncopal episodes prior to arriving. The first occurred while he was eating dinner, and the subsequent episodes occurred while on the toilet. The patient's states that he normally does not have this many episodes at the same time. The patient reports chronic dizziness. Denied any chest pain, shortness of breath. He is noted to have had a cystoscopy approximately 1 week ago, and had a Stone catheter placed. Workup showed urinalysis with positive nitrites, large leukocytes, 1+ bacteria. A chest x-ray per ER documentation showed a left basilar infiltrate. Awaiting radiology read. CT of the head showed no acute intracranial disease. He is being admitted for further evaluation and treatment. PAST MEDICAL HISTORY: Disequilibrium, dysarthria, peripheral neuropathy, anemia, anxiety, chronic neck pain, history of falling, sleep apnea with CPAP at night, depression, erectile dysfunction, gout, hypertension, rheumatoid arthritis. PAST SURGICAL HISTORY: He is status post 1 week out of a cystoscopy. FAMILY HISTORY: Reviewed and noncontributory. SOCIAL HISTORY: Currently lives with family. Denies any tobacco, alcohol, or illicit drug use. ALLERGIES: He has no known drug allergies. HOME MEDICATIONS: Vitamin B12 at 2500 mcg p.o. daily, and folic acid 1 mg p.o. daily. IMAGING AND LABORATORY DATA: Laboratory data showed a white blood cell count of 7.97, hemoglobin 13.6, hematocrit 42.1, platelets 232,000. Sodium 138, potassium 4.2, chloride 102, CO2 of 23, BUN of 18, creatinine 0.9, glucose 100. Troponin was negative. Urinalysis showed positive nitrites, large leukocytes, and 1+ bacteria. Chest x-ray per ER documentation showed a left basilar infiltrate. CT of the head showed no acute intracranial disease. REVIEW OF SYSTEMS: He denied any fever, chills, blurred vision. He has chronic dizziness, but states that it is no different from his normal. He denied any chest pain, coughing, shortness of breath, constipation, diarrhea. Again, he is 1 week out of a cystoscopy, and has a Stone catheter in place. PHYSICAL EXAMINATION: VITAL SIGNS: On arrival, he had a temperature of 98 degrees, pulse 86, respirations 18, blood pressure was 175/114, he was saturating 99% on room air. Currently, blood pressure is down to 111/65. GENERAL: This is a 63-year-old male, lying in the bed, answers questions appropriately. HEENT: Normocephalic, atraumatic. Normal ENT inspection. Oropharynx and nares are clear. Eyes: Pupils are equal, round, and reactive to light and accommodation. Extraocular movements are intact. NECK: Normal inspection. Normal range of motion. LUNGS: Clear to auscultation bilaterally with equal lung expansion and chest wall movement. HEART: Regular rate and rhythm. No murmurs, rubs, or gallops. ABDOMEN: Soft, nontender, nondistended. Bowel sounds are present x4 quadrants. MUSCULOSKELETAL: He has 5/5 strength x4 extremities. NEUROLOGICAL: The cranial nerves II through XII appear grossly intact. ASSESSMENT: 1. Vasovagal syncopal episode. 2. Left lower lobe pneumonia. 3. Urinary tract infection. 4. Status post 1 week cystoscopy with Stone catheter placement. PLAN: He was admitted to the medical unit, placed on telemetry. Will place him on DuoNebs every 4 hours, Rocephin 1 gram IV every 24 hours, azithromycin 500 IV every 24. Continue his home medications. Urine culture and blood cultures x2 are pending. Will recheck a CBC and BMP in the a.m. Further orders after seen by attending. Dictated by GREY Quezada for Christopher Amaro MD cc: GREY Quezada MD
[2019-08-30] MEDS: DUONEB (A & A) INH SCH ×4 (12:21→22:32)
[2019-08-30] MEDS ORDERED: NS 500 ML IV ONE (15:54)
[2019-08-30] MEDS: NS 1,000 ML IV SCH (16:25)
[2019-08-30] MEDS ORDERED: PHENERGAN PO ONE (17:41)
[2019-08-30] MEDS: ROCEPHIN 1 GM in NS 50 ML IV SCH (20:26)
--- NOTE | 2019-08-30 22:41 | HISTORY AND PHYSICAL ---
Patient was seen in the hospital after having several syncopal episodes at home. Part of this is chronic. He has been to see Neurology several times as well as cardiology. It does appear that he has a urinary infection and very possibly pneumonia. We are going to place him in the hospital for antibiotics, breathing treatments, oxygen and urine culture. Further orders as needed. cc: Christopher Amaro MD
[2019-08-31] MEDS: DUONEB (A & A) INH SCH ×6 (03:34→23:44)
[2019-08-31] MEDS: NS 1,000 ML IV SCH (04:26)
[2019-08-31 07:00] LABS: BASO# 0.02 X1000 (0.0-0.2); BASO% 0.3 % (0.0-0.8); EOS# 0.08 X1000 (0.0-0.7); EOS% 1.1 % (0.0-10.0); HEMOGLOBIN 10.4 g/dL (14.0-18.0); IMM GRAN# 0.01 X1000 (0.0-0.04); IMM GRAN% 0.1 % (0.0-0.5); LYMPH# 1.71 X1000 (1.2-3.4); LYMPH% 24.4 % (20.5-51.1); MCH 28.7 PG (27-31); MCHC 31.5 g/dL (33-37); MCV 91.2 FL (81-99); MONO# 0.61 X1000 (0.11-0.59); MONO% 8.7 % (1.7-9.3); MPV 10.6 FL (7.4-10.4); NEUT# 4.57 X1000 (1.4-6.5); NEUT% 65.4 % (42.2-75.2); PLT 191 X1000 (130-400); RBC 3.62 XMIL (4.7-6.1); RDW 14.7 % (11.5-14.5)
[2019-08-31 07:15] LABS: AGAP 10; BUN 18 mg/dL (8-22); CALCIUM 8.3 mg/dL (8.8-10.2); CHLORIDE 108 mmol/L (98-107); COSMO 273; CREATININE 0.8 mg/dL (0.7-1.2); ESTIMATED GFR > 60; GLUCOSE 91 mg/dL (70-104); POTASSIUM 4.3 mmol/L (3.5-5.1); SODIUM 136 mmol/L (136-145); TCO2 17 mmol/L (25-35)
[2019-08-31] MEDS: VITAMIN B-12 PO SCH (08:51)
[2019-08-31] MEDS: FOLIC ACID PO SCH (08:52)
[2019-08-31] MEDS: ZITHROMAX 500 MG/NS 500 MG/250 ML IVPB IV SCH (08:52)
[2019-08-31] MEDS ORDERED: NS 1,000 ML IV SCH (09:57)
--- NOTE | 2019-08-31 17:11 | PROGRESS NOTE ---
DATE: 08/31/2019 SUBJECTIVE: The patient himself has no complaints. His family has multiple questions. They are concerned that his gallbladder or GI system could have caused his current issues. PHYSICAL EXAMINATION: Vital signs: Temperature 97 degrees, pulse 78, respiratory rate 18, BP 110/63 although has been in the upper 80s and low 90s. General: The patient is awake, alert. He is in no distress. His speech is slurred, but this is chronic and appears unchanged. HEENT: Normocephalic. Neck: Supple. Cardiovascular: Regular rate. Chest: Clear, nonlabored. Abdomen: Soft, nondistended. Extremities: He is able to move all 4 extremities. No edema. ASSESSMENT: 1. Hypotension. 2. Vasovagal syncope. 3. Left lower lobe pneumonia. 4. Gram-negative irina urinary tract infection. 5. Dysarthric speech. PLAN: Discussed with the family that it would be highly unlikely that his gallstones contributed to either his pneumonia or his urinary tract infection. He does not currently have a gallbladder infection and certainly would not be warranted to have cholecystectomy given his other current issues. Discussed that he does need to continue to follow up outpatient with Cardiology as well as Neurology in an attempt to ascertain the cause of his current progressive dysarthric speech. Also discussed that [facility] needs [facility] potential exposures during his time of [facility]. cc: Christopher Amaro MD
[2019-08-31] MEDS: ROCEPHIN 1 GM in NS 50 ML IV SCH (20:04)
[2019-09-01] MEDS: DUONEB (A & A) INH SCH ×5 (03:47→19:31)
[2019-09-01] MEDS: ZITHROMAX 500 MG/NS 500 MG/250 ML IVPB IV SCH (09:17)
[2019-09-01] MEDS: FOLIC ACID PO SCH (09:18)
[2019-09-01] MEDS: VITAMIN B-12 PO SCH (09:18)
[2019-09-01] MEDS: ZOSYN 3.375 GM in NS 50 ML IV SCH ×3 (11:11→23:06)
--- NOTE | 2019-09-01 13:37 | PROGRESS NOTE ---
DATE: 09/01/2019 SUBJECTIVE: The patient notes that he really has not improved, although he has not worsened either. He has had no further syncopal episodes, but he has also not been out of bed. OBJECTIVE: Vital Signs: Temperature 97.7, pulse 78, respiratory rate 18, BP 110/63. General: The patient is awake. He is in no distress, lying in the bed, watching television. HEENT: Normocephalic. Neck: Supple. Cardiovascular: Regular rate. Chest: Clear. Abdomen: Soft. Extremities: Moves all extremities. ASSESSMENT: 1. Urinary tract infection. Unfortunately, his urinary tract infection is resistant to rocephin. Therefore, we will switch antibiotics. 2. Syncope caused by urinary tract infection. 3. Presumed left lower lobe pneumonia. We are going to continue Zosyn and azithromycin. Continue breathing treatments as needed, and will follow. Will check chest x-ray in the morning. cc: Christopher Amaro MD MTDD
[2019-09-01] MEDS ORDERED: NS 50 ML ONE (18:16)
[2019-09-01] MEDS: LACTULOSE PO PRN (18:54)
[2019-09-02] MEDS: ZOSYN 3.375 GM in NS 50 ML IV SCH ×4 (06:00→23:31)
[2019-09-02 06:04] LABS: HEMATOCRIT 34.6 % (42.0-52.0); HEMOGLOBIN 10.7 g/dL (14.0-18.0); MCH 28.5 PG (27-31); MCHC 30.9 g/dL (33-37); MPV 10.6 FL (7.4-10.4); RBC 3.76 XMIL (4.7-6.1); RDW 14.6 % (11.5-14.5); WBC 5.75 X1000 (4.8-10.8)
[2019-09-02] MEDS: DUONEB (A & A) INH SCH ×7 (06:08→23:37)
[2019-09-02] MEDS: LACTULOSE PO PRN (06:19)
[2019-09-02 06:20] LABS: AGAP 10; ALBUMIN 3.5 g/dL (3.5-5.0); ALKALINE PHOSPHATASE 135 U/L (32-122); BUN 12 mg/dL (8-22); CALCIUM 8.7 mg/dL (8.8-10.2); CHLORIDE 108 mmol/L (98-107); COSMO 277; CREATININE 0.6 mg/dL (0.7-1.2); ESTIMATED GFR > 60; GLUCOSE 101 mg/dL (70-104); GOT 14 U/L (10-34); GPT 12 U/L (10-44); MAGNESIUM 1.9 mg/dL (1.5-2.7); POTASSIUM 4.1 mmol/L (3.5-5.1); SODIUM 139 mmol/L (136-145); TCO2 21 mmol/L (25-35); TOTAL PROTEIN 6.6 g/dL (6.3-8.3)
--- NOTE | 2019-09-02 07:21 | Diag Imaging Result Doc PS360 ---
EXAM: CHEST-PORTABLE HISTORY: hypoxia TECHNIQUE: Single view COMPARISON: 08/29/2019 FINDINGS: The lungs are well expanded. The heart is not enlarged. The vessels are not distended. There are no infiltrates. No effusion identified. IMPRESSION: Negative exam. Electronically signed by Miguel Llanes 09/02/2019 7:18 AM
[2019-09-02] MEDS: ZITHROMAX 500 MG/NS 500 MG/250 ML IVPB IV SCH (09:02)
[2019-09-02] MEDS: FOLIC ACID PO SCH (09:02)
[2019-09-02] MEDS: VITAMIN B-12 PO SCH (09:02)
--- NOTE | 2019-09-02 16:15 | DISCHARGE SUMMARY ---
ADMISSION DATE: 08/30/2019 DISCHARGE DATE: DISCHARGE DIAGNOSES: 1. 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 2. 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 He has got this kind of dysarthria, disequilibrium, possibly some dysautonomia. HOSPITAL COURSE: Briefly, a 63-year-old male. He came in with a vasovagal episode. He was placed on IV fluids. Dr. Lynch diagnosed him with a left basilar pneumonia which radiology did not confirm the next day based on their interpretation of the x-ray. In any case, his culture grew out the Alcaligenes which is susceptible to Zosyn. The only thing it is susceptible to orally and at least it is susceptible to something orally was Bactrim. So, his repeat chest x-ray did not show pneumonia, so I do not think he truly ended up having pneumonia. In any case, he will be discharged on his current medications. Folic acid 1 daily, vitamin B12 with 2500 daily, and Bactrim 1 p.o. b.i.d. for another 10 days. T He only other thing, he was kind of hypotensive initially. He is now hypertensive. I am a little leery of starting any antihypertensives since his blood pressure had been low, and he may have some dysautonomia issues. DISCHARGE CONDITION: Stable. DISCHARGE INSTRUCTIONS: Follow up with PCP, Dr. Jacobo in 1 week. TIME SPENT: 32-minute discharge. cc: Bubba Juarez MD
[2019-09-03] MEDS: DUONEB (A & A) INH SCH ×3 (03:52→11:28)
[2019-09-03] MEDS: ZOSYN 3.375 GM in NS 50 ML IV SCH ×2 (05:37→12:22)
[2019-09-03 07:53] VITALS: BP 163/94
[2019-09-03] MEDS: FOLIC ACID PO SCH (08:07)
[2019-09-03] MEDS: VITAMIN B-12 PO SCH (08:07)
[2019-09-03] MEDS ORDERED: ZITHROMAX PO SCH (09:00)
--- NOTE | 2019-09-03 15:12 | DISCHARGE SUMMARY ---
ADMISSION DATE: 08/30/2019 DISCHARGE DATE: 09/03/2019 ADDENDUM REPORT The patient is stable and plan is to go home today. Stable hemoglobin and hematocrit. Doing well overall. cc: Bubba Juarez MD
== END 2019-09-03 13:25 | disposition home health service (06) | DRG 690 ==
LOC: P.ED 20:02 → SUATTDRO 08-30 00:27 → P.MEDSURG 08-30 00:27
PROVIDERS: ATTEND Internal Medicine

== ENCOUNTER 2019-09-04 11:14 | Inpatient (IN) ==
[2019-09-04] MEDS ORDERED: TYLENOL PO PRN (11:35)
[2019-09-04] MEDS ORDERED: ZOFRAN IV PRN (11:35)
[2019-09-04] MEDS ORDERED: TAZIDIME 1 GM in NS 50 ML IV SCH (12:00)
[2019-09-04] MEDS ORDERED: CHLORASEPTIC SPRAY MT PRN (14:47)
--- NOTE | 2019-09-04 15:04 | HISTORY AND PHYSICAL ---
PRIMARY CARE PHYSICIAN: Dr. Christopher Amaro. CHIEF COMPLAINT: Allergic reaction to Bactrim that he was given on discharge yesterday for a Alcaligenes xylosoxidans subspecies xylose UTI. HISTORY OF PRESENTING ILLNESS: This is a 63-year-old male who is directly admitted from home today after he was discharged from the hospital yesterday with a Alcaligenes xylosoxidans subspecies xylose UTI that was sensitive to only oral Bactrim. The patient at that time had no known drug allergies, so he was discharged home on Bactrim DS b.i.d. The patient states that he took 1 dose of the medication this morning and then began having welts to bilateral arms and some on his legs, felt mildly short of breath, so he called back up to the hospital and attending decided to place him back in the hospital because his urine sensitivity was only sensitive to the p.o. Bactrim. The rest of the sensitivities were to IV antibiotics so he will be admitted and placed back on IV antibiotics. We will consult for a PICC line for home IV treatment to complete his therapy. PAST MEDICAL HISTORY: Disequilibrium, dysarthria, peripheral neuropathy, anemia, anxiety, chronic neck pain, history of falling, sleep apnea with CPAP at night, depression, erectile dysfunction, gout, hypertension, and rheumatoid arthritis. PAST SURGICAL HISTORY: Status post 1 week out of a cystoscopy. FAMILY HISTORY: Reviewed and noncontributory. SOCIAL HISTORY: Currently lives with family. Denies any tobacco, alcohol or illicit drug use. ALLERGIES: We will now add sulfa to his allergy list. HOME MEDICATIONS: A current list will need to be obtained, reconciled, reviewed and restarted as appropriate. We will place an order for nursing to update and confirm home medications. LABORATORY DATA: At this time. We are going to obtain a CBC, BMP and PT with INR. REVIEW OF SYSTEMS: He denies any fever, chills, blurred vision, dizziness, chest pain, coughing. He had some mild shortness of breath at home, but that is improved. He has welts to his bilateral arms that are beginning to itch as he has had an allergic reaction to Bactrim. Denies any abdominal pain, constipation, diarrhea, burning or hurting with urination. PHYSICAL EXAMINATION: On arrival he had a temperature of 97.5 degrees, pulse 85, respirations 20, blood pressure 143/88, saturating 100% on room air. GENERAL: This is a 63-year-old male who presents from home as a direct admit after he called stating that he was having an allergic reaction to the Bactrim he was prescribed on discharge yesterday. HEENT: Normocephalic, atraumatic. Normal ENT inspection. Oropharynx and nares are clear. EYES: Pupils are equal, round, reactive to light and accommodation. Extraocular movements are intact. NECK: Normal inspection, normal range of motion. LUNGS: Clear to auscultation bilaterally with equal lung expansion and chest wall movement. HEART: Regular rate and rhythm. No murmurs, rubs, or gallops. ABDOMEN: Soft, nontender, nondistended. Bowel sounds are present x4 quadrants scan. SKIN: Patient is noted to have several red welts to his bilateral arms and a couple to his upper thighs. States that they are also beginning to itch that began after he took 1 dose of Bactrim DS. NEUROLOGICAL: Cranial nerves 2-12 appear grossly intact. ASSESSMENT: 1. Allergic reaction to Bactrim DS p.o. 2. 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 PLAN: He has been admitted to the medical unit, placed on telemetry, diabetic diet, pattern blood sugars with sliding scale insulin. We will place him on ceftazidime 1 g IV Q 8. We will obtain a CBC BMP and PT with INR. We will consult Infectious Disease. We will update and confirm home medications. Do a PICC consult when available and check an INR for that PICC line. Further orders after seen by attending. Dictated by GREY Quezada for Bubba Juarez MD cc: GREY Quezada MD Gregory S. Cheatham, MD
[2019-09-04] MEDS ORDERED: HUMULIN R (PARKWAY) SUBQ SCH (16:00)
[2019-09-04] MEDS: MAXIPIME 1 GM in NS 50 ML IV SCH (16:14)
[2019-09-04] MEDS: BENADRYL IV PRN (20:48)
[2019-09-05] MEDS: MAXIPIME 1 GM in NS 50 ML IV SCH ×3 (00:17→08:48)
[2019-09-05 05:44] LABS: BASO# 0.04 X1000 (0.0-0.2); BASO% 0.7 % (0.0-0.8); EOS# 0.17 X1000 (0.0-0.7); EOS% 2.8 % (0.0-10.0); HEMOGLOBIN 11.6 g/dL (14.0-18.0); IMM GRAN# 0.03 X1000 (0.0-0.04); IMM GRAN% 0.5 % (0.0-0.5); LYMPH# 1.47 X1000 (1.2-3.4); LYMPH% 24.1 % (20.5-51.1); MCH 28.6 PG (27-31); MCHC 31.4 g/dL (33-37); MCV 91.4 FL (81-99); MONO# 0.55 X1000 (0.11-0.59); MPV 10.1 FL (7.4-10.4); NEUT# 3.83 X1000 (1.4-6.5); NEUT% 62.9 % (42.2-75.2); PLT 219 X1000 (130-400); RBC 4.05 XMIL (4.7-6.1); RDW 14.5 % (11.5-14.5); WBC 6.09 X1000 (4.8-10.8)
[2019-09-05 06:08] LABS: INR 0.99; PROTIME 13.6 Seconds (11.0-16.0)
[2019-09-05 06:09] LABS: AGAP 10; BUN 14 mg/dL (8-22); CALCIUM 9.1 mg/dL (8.8-10.2); CHLORIDE 104 mmol/L (98-107); COSMO 270; CREATININE 0.8 mg/dL (0.7-1.2); ESTIMATED GFR > 60; GLUCOSE 90 mg/dL (70-104); POTASSIUM 4.4 mmol/L (3.5-5.1); SODIUM 135 mmol/L (136-145); TCO2 21 mmol/L (25-35)
[2019-09-05] MEDS ORDERED: MAXIPIME 1 GM in NS 50 ML IV SCH (08:43)
[2019-09-05] MEDS: BENADRYL IV PRN ×2 (08:46→21:44)
--- NOTE | 2019-09-05 14:29 | PROGRESS NOTE ---
DATE: 09/05/2019 SUBJECTIVE: Patient has no major complaints. OBJECTIVE: Blood pressure is 140/104, heart rate 75, respiratory rate 18, temperature 97.6 degrees, 98% on room air.Cardiovascular: Regular rate and rhythm. Pulmonary: Bilateral breath sounds clear to auscultation. GI: Soft, nontender, nondistended. Bowel sounds are positive. LABORATORY DATA: White count 6, sodium 135. Rest of it was pretty normal. PROBLEM LIST: Alcaligenes xylosoxidans. The patient was admitted. I have discussed with Dr. Figueroa. He feels Invanz once a day should be sufficient coverage and we will treat for 10 days, 2 weeks we are putting in for a PICC line and we will do home IV therapy and have him follow up with Dr. Figueroa as an outpatient. cc: Bubba Juarez MD
[2019-09-05] MEDS: INVANZ 1 GM/NS 1 GM/50 ML IVPB IV SCH (17:24)
[2019-09-05] MEDS: LOVENOX SUBQ SCH (17:24)
[2019-09-06] MEDS ORDERED: VITAMIN B-12 PO SCH (09:00)
[2019-09-06] MEDS ORDERED: FOLIC ACID PO SCH (09:00)
[2019-09-06] MEDS ORDERED: NS 250 ML ONE (09:28)
[2019-09-06 09:30] VITALS: BP 102/58
[2019-09-06] MEDS: LOVENOX SUBQ SCH (14:36)
[2019-09-06] MEDS: INVANZ 1 GM/NS 1 GM/50 ML IVPB IV SCH (14:36)
--- NOTE | 2019-09-07 14:13 | DISCHARGE SUMMARY ---
ADMISSION DATE: 09/04/2019 DISCHARGE DATE: 09/06/2019 DISCHARGE DIAGNOSES: 1. Urinary tract infection which was multidrug resistant, positive for Alicgenes sp. 2. Chronic disequilibrium. 3. Dysarthria. 4. Peripheral neuropathy. 5. Depression. BRIEF SUMMARY: Briefly, this is a 63-year-old male recently admitted for UTI and questionable pneumonia but he was discharged based on sensitivities on Bactrim, but he developed a rash after just 1 dose of Bactrim like a hive type rash. No known sulfa allergy, so he was readmitted for IV antibiotics because there was no other oral options. I discussed the case briefly with Dr. Figueroa and he recommended changing to Invanz, and treating for 10 days to 2 weeks. The patient was symptomatic in the sense that he had a recent catheter placed about a month or so ago. DISCHARGE CONDITION: Stable. DISCHARGE MEDICATIONS: Folic acid 1 daily, vitamin B12 with 2500 daily, Invanz 1 gram IV daily for 10 days. FOLLOWUP: He is going to follow up with Dr. Figueroa in a week to further manage his outpatient medications. cc: MD Christopher Rocha MD Leroy F. Harris, MD MTDD
== END 2019-09-06 15:48 | disposition home health service (06) | DRG 690 ==
LOC: P.MEDSURG 11:14
PROVIDERS: ATTEND Internal Medicine